=== PATIENT | male | born 1960 | race Caucasian/White ===

== ENCOUNTER → 2017-05-26 | Outpatient (CLI) | payer OTHER ==
[~2017-05-26] MED LIST: DICY20TA3 PO; OMEP-110 PO
== END ==
LOC: STAR 07:47
PROVIDERS: ATTEND Surgery
DX: Z02.9 Encounter for administrative examinations, unspecified (principal)

== ENCOUNTER 2017-06-01 06:34 | Day surgery (SDC) | payer OTHER ==
[2017-05-26 08:23] VITALS: BP 157/94
[~2017-06-01] VITALS: Ht 179.1 cm; Wt 84.3 kg
[2017-06-01] MEDS ORDERED: BUPIVACAINE/PF 0.5% ONE (07:08)
[2017-06-01] MEDS ORDERED: EPINEPHRINE 1 MG/ML, 1ML ONE (07:08)
[2017-06-01] MEDS ORDERED: LACTATED RINGERS 1,000 ML IV SCH (07:12)
[2017-06-01] MEDS ORDERED: LIDOCAINE 1%, 2ML SQ PRN (07:30)
[2017-06-01] MEDS ORDERED: FENTANYL PF 100 MCG/2ML ONE ×5 (08:27→10:55)
[2017-06-01] MEDS ORDERED: MIDAZOLAM 1 MG/ML, 2ML ONE ×2 (08:27→10:39)
[2017-06-01] MEDS ORDERED: GLYCOPYRROLATE 0.2MG/1ML, 5ML ONE (08:27)
[2017-06-01] MEDS ORDERED: NEOSTIGMINE 1 MG/ML, 10ML ONE (08:27)
[2017-06-01] MEDS ORDERED: ONDANSETRON 2MG/ML, 2ML ONE (08:27)
[2017-06-01] MEDS ORDERED: METOPROLOL 1 MG/ML, 5ML ONE (08:27)
[2017-06-01] MEDS ORDERED: ROCURONIUM 10 MG/ML ONE (08:27)
[2017-06-01] MEDS ORDERED: CEFAZOLIN 1,000 MG ONE (08:27)
[2017-06-01] MEDS ORDERED: PROPOFOL 10 MG/ML, 20ML ONE (08:27)
[2017-06-01] MEDS ORDERED: DEXAMETHASONE 4 MG/ML, 1ML ONE (08:27)
[2017-06-01] MEDS ORDERED: FENTANYL PF 100 MCG/2ML IV PRN (09:00)
[2017-06-01] MEDS ORDERED: OXYcodone 5 MG/5 ML ORAL.SOL UDC PO PRN (09:00)
[2017-06-01] MEDS ORDERED: ONDANSETRON 2MG/ML, 2ML IVPush PRN (09:00)
[2017-06-01] MEDS ORDERED: ACETAMINOPHEN 325 MG TABLET PO PRN (09:00)
[2017-06-01] MEDS ORDERED: LABETALOL 5MG/ML, 20ML IV PRN (09:00)
[2017-06-01] MEDS ORDERED: KETOROLAC 30 MG/1 ML IV PRN (09:00)
[2017-06-01] MEDS ORDERED: MEPERIDINE/PF 25MG/0.5ML IVPush PRN (09:00)
[2017-06-01] MEDS ORDERED: HYDROmorphone 1 MG/ML, 1ML IV PRN (09:00)
[2017-06-01] MEDS ORDERED: KETOROLAC 30 MG/1 ML ONE (10:35)
[2017-06-01] MEDS ORDERED: ACETAMINOPHEN 650 MG/20.3 ML UDC ONE (10:55)
[2017-06-01] MEDS ORDERED: OXYcodone 5 MG/5 ML ORAL.SOL UDC ONE (10:56)
[2017-06-01] MEDS ORDERED: MEPERIDINE/PF 25MG/0.5ML ONE (10:56)
[2017-06-01] MEDS ORDERED: OXYcodone/APAP 5/325MG TABLET PO PRN (17:30)
== END 2017-06-01 18:20 | disposition home or self-care (01) ==
LOC: OUT 06:34
PROVIDERS: ATTEND Surgery
DX: K40.20 Bilateral inguinal hernia, without obstruction or gangrene, not specified as recurrent (principal); K21.9 Gastro-esophageal reflux disease without esophagitis; Z98.890 Other specified postprocedural states; Z72.89 Other problems related to lifestyle
CPT/HCPCS: 49650; C1781; J0171; J0690; J1100; J2175; J2250; J2405; J2704; J2710; J3010; J3490; J7120; S2900

== ENCOUNTER → 2017-08-12 | Outpatient (CLI) | payer OTHER | END | disposition home or self-care (01) | LOC: CFH 13:06 | PROVIDERS: ATTEND Nurse Practitioner Family | DX: R07.89 Other chest pain (principal) | CPT/HCPCS: 78452; 93017; A9502 ==